=== PATIENT | female | born 1970 | race Caucasian/White ===

== ENCOUNTER 2024-01-30 08:43 | Emergency (ER) | payer BC, SELFPAY ==
[2024-01-30 08:46] VITALS: BP 166/127
--- NOTE | 2024-01-30 10:16 | ED.GENMED ---
History of Present Illness
General
Chief Complaint: Musculo-Skeletal Complaint
Source: patient
Exam Limitations: none
Time Seen by Provider: 01/30/24 09:22
Nursing documentation reviewed up to this point in time: agreed with
Travel History
Have you had any contact with someone who has COVID-19?: No
Do you have any symptoms of coronavirus? Fever > 100 degrees, chills, cough, shortness of breath, sore throat, loss of taste or smell, muscle aches, or headache?: No
History of Present Illness
History of Present Illness:
Patient is a 53-year-old female who presents to the ER complaint of left knee pain. Patient was with her dogs last night and slipped in the mud and fell twisting her left knee. She had a recent right hip replacement 3 months ago was trying to
avoid falling on her knee and landed more on her left side. She describes a twisting type mechanism. She does complain of pain to the left knee. She is able to bear weight. She denies any other injuries.
Past History
Social History
Tobacco: Non-smoker
Review of Systems
Review of Systems
Allergies reviewed?: Yes
All Other Systems: ROS reviewed and negative except as documented in HPI and ROS
Constitutional: Reports no symptoms
Musculoskeletal: Reports other (left knee pain )
Skin: Reports no symptoms
Neurological: Reports no symptoms
Hematologic/Lymphatic: Reports no symptoms
Psychiatric: Reports no symptoms
Phy Exam
General Physical Exam
General Presentation: no apparent distress
General age: appears stated age
General Skin: warm and dry
General Habitus: normal
General Mental: alert
Neurological Exam
Neurological Exam: alert and oriented x3
Musculoskeletal Exam
Musculoskeletal Exam: other (Left lower extremity with strong pulses no obvious swelling no obvious redness mild discomfort with medial stress no laxity no erythema strong distal pulses, full range of motion to bilateral hip)
Skin Exam
Skin Exam: normal color and warm/dry
Psychiatric Exam
Psychiatric Exam: normal mood/affect
Course
Orders/Labs/Results
Orders:
Orders
01/30/24 08:52
Knee, Left 4 or More Views [CR Knee - Left 4 Or More View*] Urgent
Comment:
Reason For Exam: pain injury
01/30/24 10:16
Knee Immobilizer Left-Treatmen ONCE
Ibuprofen [Motrin] 600 mg PO NOW STA
Vital Signs
Initial and Last Documented VS:
Initial Vital Signs
Temp Pulse Resp BP Pulse Ox
98.4 F 102 16 166/127 99
01/30/24 08:46 01/30/24 08:46 01/30/24 08:46 01/30/24 08:46 01/30/24 08:46
Last Documented Vital Signs
Temp Pulse Resp BP Pulse Ox
98.4 F 102 16 166/127 99
01/30/24 08:46 01/30/24 08:46 01/30/24 08:46 01/30/24 08:46 01/30/24 08:46
MDM/Problems Addressed
Differential Diagnosis Includes:
No evidence of sprain strain of knee
MDM/Problems Addressed:
Symptoms are consistent with sprain strain of knee possible meniscus versus ligament injury. Will DC with knee immobilizer. Patient has [facility] past for her right hip replacement will DC with [facility] follow-up. Will DC
with NSAIDs
Chronic conditions affecting care:
Right hip replacement 3 mos ago
*Radiology
Radiology exam reviewed: radiology read reviewed
*Pulse Oximetry
Patient hypoxic: no
*Critical Care Note
Total Time (30-74mins, 75-104mins- exclusive of procedures): Not Applicable
ED Attending Note
-
Portions of this chart may have been created with voice recognition software.� Occasional wrong word or��sound alike� substitutions may have occurred due to the inherent limitations of voice recognition software.
Discharge Plan
Departure
Patient Disposition: Home (Routine Discharge)
Date of Disposition: 01/30/24
Time of Disposition: 10:19
Patient with high blood pressure during this ER visit?: Yes
Condition: Fair
Covid-19: Not Applicable
Discharge Problem:
Knee sprain
Instructions: Knee Immobilizer (DC), Knee Sprain (DC), BLOOD PRESSURE
Referrals:
Nori Clay MD [Family Provider] -
Luis Carlin MD [Active] -
Activity Restrictions/Additional Instructions:
Ice affected area for the first 24 hours at times at a time several times a day. Wear immobilizer for support.you may remove at night while sleeping. Keep elevated as much as possible. Ibuprofen 600 mg every 8 hours with food. Follow-up with
orthopedics in next several days for reevaluation return if any worsening of symptoms.
Interventions
Interventions:
*Risk Screen - Suicide Last Done: 01/30/24 08:46
*Neglect/Abuse Screening Last Done: 01/30/24 08:46
*ED COVID-19 Vaccine History Last Done: 01/30/24 08:51
[2024-01-30] MEDS: MOTRIN 600 MG PO (10:39)
[2024-01-30 11:16] VITALS: BP 138/82
== END 2024-01-30 11:17 | disposition home or self-care (01) ==
LOC: EMR 08:43
PROVIDERS: EMERGENCY PHYSICIAN Emergency Medicine; FAMILY PHYSICIAN Internal Medicine
DX: S83.92XA Sprain of unspecified site of left knee, initial encounter (principal); W01.0XXA Fall on same level from slipping, tripping and stumbling without subsequent striking against object, initial encounter; Z96.641 Presence of right artificial hip joint
CPT/HCPCS: 99283; 29505; 73564

== ENCOUNTER → 2024-08-04 08:19 | Outpatient (REF) | payer BC, SELFPAY | LOC: HWRAD 08:19 | PROVIDERS: ATTENDING PHYSICIAN Internal Medicine | DX: D17.9 Benign lipomatous neoplasm, unspecified (principal); R31.29 Other microscopic hematuria | CPT/HCPCS: 76775 ==

== ENCOUNTER → 2024-08-08 15:12 | Outpatient (REF) | payer BC, SELFPAY | LOC: WDC 15:12 | PROVIDERS: ATTENDING PHYSICIAN Nurse Practitioner Adult Health; FAMILY PHYSICIAN Internal Medicine | DX: Z12.31 Encounter for screening mammogram for malignant neoplasm of breast (principal) | CPT/HCPCS: 77063; 77067 ==

== ENCOUNTER → 2024-08-23 14:46 | Outpatient (REF) | payer BC, SELFPAY | LOC: HWRAD 14:46 | PROVIDERS: ATTENDING PHYSICIAN Nurse Practitioner Adult Health; FAMILY PHYSICIAN Internal Medicine | DX: N93.9 Abnormal uterine and vaginal bleeding, unspecified (principal) | CPT/HCPCS: 76830; 76856 ==

== ENCOUNTER → 2024-09-13 18:07 | Outpatient (REF) | payer BC, SELFPAY | LOC: MRI 18:07 | PROVIDERS: ATTENDING PHYSICIAN Internal Medicine | DX: N28.89 Other specified disorders of kidney and ureter (principal) | CPT/HCPCS: 74183; A9575 ==

== ENCOUNTER → 2024-10-16 11:22 | Outpatient (REF) | payer BC, SELFPAY ==
[2024-10-16 11:41] LABS: % Basophils 0.6 % (0-2); % Eosinophils 1.5 % (0-6); % Immature Granulocytes 0.2 % (0-0.5); % Monocytes 9.9 % (1.7-9.3); % Neutrophils 73.8 % (42.2-75.2); Absolute Basophils 0.1 10^3/uL (0-0.2); Absolute Eosinophils 0.1 10^3/uL (0-0.7); Absolute Lymphocytes 1.1 10^3/uL (1.2-3.4); Absolute Monocytes 0.8 10^3/uL (0.1-0.6); Hematocrit 38.3 % (37.0-47.0); Hemoglobin 12.4 g/dL (12.0-16.0); Mean Corp Hgb Conc. 32.4 g/dL (33.0-37.0); Mean Corpuscular Hgb 31.6 pg (27.0-31.0); Mean Corpuscular Volume 97.5 fL (81.0-99.0); Mean Platelet Volume 8.8 fL (7.4-10.4); Nucleated Red Blood Cells % 0 %; Platelet Count 365 10^3/uL (130-400); Red Blood Cell Count 3.93 10^6/uL (4.20-5.40); Red Cell Dist. Width 13.1 % (11.5-14.5); White Blood Cell Count 8.1 10^3/uL (4.8-10.8)
== END ==
LOC: REG 11:22
PROVIDERS: ATTENDING PHYSICIAN Obstetrics & Gynecology Gynecology; FAMILY PHYSICIAN Internal Medicine
DX: N93.9 Abnormal uterine and vaginal bleeding, unspecified (principal)
CPT/HCPCS: 36415; 85025

== ENCOUNTER → 2024-11-09 17:45 | Outpatient (REF) | payer BC, SELFPAY | LOC: MRI 17:45 | PROVIDERS: ATTENDING PHYSICIAN Obstetrics & Gynecology Gynecology; FAMILY PHYSICIAN Internal Medicine | DX: D25.1 Intramural leiomyoma of uterus (principal); N93.9 Abnormal uterine and vaginal bleeding, unspecified; N92.4 Excessive bleeding in the premenopausal period | CPT/HCPCS: 72197; A9575 ==

== ENCOUNTER → 2024-11-24 11:22 | Outpatient (REF) | payer BC, SELFPAY ==
[2024-11-24 11:55] VITALS: BP 111/73; BP_SYST 70
== END ==
LOC: RADI 11:22
PROVIDERS: ATTENDING PHYSICIAN Obstetrics & Gynecology Gynecology; FAMILY PHYSICIAN Internal Medicine
DX: D25.9 Leiomyoma of uterus, unspecified (principal)

== ENCOUNTER 2024-12-25 10:48 | Day surgery (SDC) | payer BC, SELFPAY ==
[2024-12-21 14:07] VITALS: BMI 26.6
[2024-12-25] VITALS (12 sets, daily range): BP systolic 91–158; BP diastolic 87–103
[2024-12-25 07:21] LABS: Hematocrit 38.7 % (37.0-47.0); Hemoglobin 12.8 g/dL (12.0-16.0); Mean Corp Hgb Conc. 33.1 g/dL (33.0-37.0); Mean Corpuscular Hgb 30.3 pg (27.0-31.0); Mean Corpuscular Volume 91.7 fL (81.0-99.0); Mean Platelet Volume 8.9 fL (7.4-10.4); Platelet Count 486 10^3/uL (130-400); Red Blood Cell Count 4.22 10^6/uL (4.20-5.40); Red Cell Dist. Width 13.2 % (11.5-14.5); White Blood Cell Count 11.8 10^3/uL (4.8-10.8)
[2024-12-25 07:24] LABS: Blood Urea Nitrogen 17 mg/dl (7-17); Estimated Creatinine Clearance 63 ml/min; INR 0.83; PT 11.7 Sec (11.4-14.6)
[2024-12-25 07:31] LABS: HCG, Urine Qualitative Screen Negative
[2024-12-25] MEDS: ANCEF 10 IV (08:24)
[2024-12-25] MEDS: OXYCONTIN (CONTROLLED RELEASE) 10 MG PO (08:24)
[2024-12-25] MEDS: ATIVAN 1 MG PO (08:24)
[2024-12-25] MEDS: ZOFRAN 8 MG PO (08:25)
[2024-12-25] MEDS: DECADRON 10 MG IV (08:25)
[2024-12-25] MEDS: BENADRYL 25 MG IV (08:26)
[2024-12-25] MEDS: NSS 1000 IV (10:52)
[2024-12-25] MEDS: DILAUDID 0.5 MG IV (10:54)
[2024-12-25] MEDS: OFIRMEV 100 IV (10:59)
--- NOTE | 2024-12-25 13:08 | PTCARENOTE ---
pt new admission from PACU, pt is AAO*3, room air BP elevated. pt states she already took her BP meds this morning. pt c/o 5 pain. pt received Dilaudid in PACU prior to transport. gallagher in place. pt to be in bedrest till 1630. will take gallagher out
at 1330 as per MD order. pt oriented to the room. call barcenas within the reach. plan of care ongoing.
[2024-12-25] MEDS: ROXICODONE 5 MG PO ×2 (14:35→19:27)
[2024-12-25] MEDS: TORADOL 10 MG IV ×2 (16:03→21:25)
[2024-12-25] MEDS: NSS IV (21:02)
[2024-12-26] MEDS: ROXICODONE 5 MG PO (01:25)
[2024-12-26 03:13] VITALS: BP 155/106
[2024-12-26] MEDS: TORADOL 10 MG IV ×2 (03:25→09:06)
[2024-12-26 07:37] VITALS: BP 165/108
--- NOTE | 2024-12-26 07:38 | W.PN.GENERIC ---
Assessment / Plan
-
54 yo female with h/o uterine fibroids and AUB. She underwent UAE yesterday. She is doing well. She is tolerating POs and voiding spontaneously.
She is stable for discharge today
I spent over 30 minutes in counseling and coordination of care with the patient, reviewing medical records, pertinant laboratory studies and relevant imaging as well as discussing the procedure and expected outcome with the patient.
Physician Progress Note
Subjective
This is a pleasant 54-year-old female with past medical history significant for hypertension and gastroesophageal reflux along with abnormal uterine bleeding. She reports that the symptoms have been getting worse over the past couple of
years. She reports menorrhagia. She has no prior history of anemia. She underwent UAE yesterday. She has some cramping as expected. She is voiding spontaneously. She is tolerating POs. She denies fever, chills, nausea, vomiting, dizziness,
palpitations or shortness of breath.
PMH: Uterine fibroids, hypertension and gastroesophageal reflux.
PSH: section, dilatation and curettage, arthroscopy right knee ACL repair, Left knee OsgoodSchlatter. Right hip replacement.
Social History: She is and lives with her . She teaches preschool. She denies tobacco use.
Allergies: NKDA.
Current Medications: Ritika, betamethasone valerate 0.1%, losartan 25 mg, Prilosec, Singulair.
Objective
Vital Signs
Temp Pulse Resp BP Pulse Ox
98.3 F 81 18 155/106 97
12/26/24 03:13 12/26/24 03:13 12/26/24 03:13 12/26/24 03:13 12/26/24 03:13
Lab Results
12/25/24 07:04
12/25/24 07:04
Physical examination: This is a well-nourished, well-developed 54-year-old female who is awake, alert and oriented in no acute distress. Her color is good. Her skin is warm and dry. Her neck is supple. Her heart is regular. Her lungs are clear to
auscultation and equal throughout. Her abdomen is soft and nontender with bowel sounds present.Grooin dressing CDI. No hematoma. [place] pulses.
--- NOTE | 2024-12-26 10:14 | CM ---
Alert awake oriented patient who lives with her Neymar she has a first floor bed bathroom set up. She is independent in driving and in all activities of daily living.Offered VN she declined.
No adaptive devices
Never had VN/SNF
Pharmacy [facility]
PCP Dr Clay
PLAN Home no needs
== END 2024-12-26 09:43 | disposition home or self-care (01) ==
LOC: RADI 10:48
PROVIDERS: ATTENDING PHYSICIAN Radiology Diagnostic Radiology; FAMILY PHYSICIAN Internal Medicine; REFERRING PHYSICIAN Obstetrics & Gynecology Gynecology
DX: D25.9 Leiomyoma of uterus, unspecified (principal); N92.0 Excessive and frequent menstruation with regular cycle
CPT/HCPCS: 37243; 36246; 36415; 75736; 76937; 81025; 82565; 84520; 85027; 85610; 99152; 99153; C1769

== ENCOUNTER → 2025-08-10 12:28 | Outpatient (REF) | payer BC, SELFPAY | LOC: WDC 12:28 | PROVIDERS: ATTENDING PHYSICIAN Obstetrics & Gynecology Gynecology; FAMILY PHYSICIAN Internal Medicine | DX: Z12.31 Encounter for screening mammogram for malignant neoplasm of breast (principal) | CPT/HCPCS: 77063; 77067 ==